=== PATIENT | male | born 2000 | race Caucasian/White ===

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

== ENCOUNTER → 2019-08-12 | Outpatient (CLI) | payer BC ==
--- NOTE | 2019-08-12 15:52 | RAD ---
EXAM DESCRIPTION: Thumb,Left CLINICAL HISTORY: 19 years Male, PAIN IN LEFT THUMB COMPARISON: None. Findings: 3 views/radiographs Oblique nondisplaced thumb proximal phalanx fracture. No definite intra-articular extension. No other fracture is seen. Joint spaces are maintained. No focal soft tissue swelling. Normal bone mineralization. IMPRESSION: Nondisplaced thumb proximal phalanx fracture. Electronically signed by: Haim Garvin MD 08/12/2019 3:50 PM [facility]
== END ==
LOC: RAD 14:59
PROVIDERS: ATTEND Family Medicine
DX: S62.515A Nondisplaced fracture of proximal phalanx of left thumb, initial encounter for closed fracture (principal)

== ENCOUNTER → 2019-09-15 | Outpatient (CLI) | payer BC | DX: S62.512D Displaced fracture of proximal phalanx of left thumb, subsequent encounter for fracture with routine healing (principal) ==